=== PATIENT | female | born 1970 | race Asian ===

== ENCOUNTER 2024-02-05 16:08 | Emergency (ER) | payer OTHER ==
[2024-02-05 16:15] VITALS: BMI 26.4
[2024-02-05] MEDS ORDERED: ACETAMINOPHEN INJECTION 100 ML IVPB ONE (17:01)
[2024-02-05] MEDS ORDERED: ONDANSETRON 4 MG/2 ML VIAL ONE (17:01)
[2024-02-05] MEDS: ACETAMINOPHEN 1000 MG/100 ML BAG IVPB ONE (17:17)
[2024-02-05] MEDS: SODIUM CHLORIDE 0.9% 500 ML INFUS.BAG IV ONE ×2 (17:17→23:23)
[2024-02-05] MEDS: ONDANSETRON 4 MG/2 ML VIAL IVPUSH ONE (17:18)
[2024-02-05 17:28] LABS: PH,URINE 7.5 (5.0-8.0); URINE APPEARANCE CLEAR; URINE BILIRUBIN NEGATIVE (NEGATIVE); URINE COLOR YELLOW; URINE GLUCOSE (UA) NEGATIVE (NEGATIVE); URINE KETONE 1+ (NEGATIVE); URINE LEUK ESTERASE NEGATIVE (NEGATIVE); URINE NITRITE NEGATIVE (NEGATIVE); URINE PROTEIN NEGATIVE (NEGATIVE)
[2024-02-05 17:29] LABS: BASO % 0.3 % (0-2.0); HEMATOCRIT 37.6 % (32.4-45.2); HEMOGLOBIN 12.6 GM/dL (10.7-15.3); LYMPH % 12.9 % (8-40); MCH 26.8 pg (25.7-33.7); MCHC 33.4 g/dl (32.0-36.0); MEAN CELL VOLUME 80.3 fl (80-96); MEAN PLT VOLUME 7.5 fl (7.5-11.1); NEUT % 77.8 % (42.8-82.8); PLATELET COUNT 280 10^3/uL (134-434); RBC 4.68 M/mm3 (3.60-5.2); RDW 13.7 % (11.6-15.6)
[2024-02-05 17:44] LABS: POTASSIUM 4.1 mmol/L (3.5-5.1)
[2024-02-05 17:46] LABS: ALBUMIN 3.7 g/dl (3.4-5.0); BLOOD UREA NITROGEN 4.9 mg/dL (7-18); CALCIUM 9.1 mg/dL (8.5-10.1)
[2024-02-05 17:50] LABS: CREATININE 0.8 mg/dL (0.55-1.3)
[2024-02-05 17:51] LABS: BILIRUBIN,TOTAL 1.8 mg/dL (0.2-1); TOT PROT 8.1 g/dl (6.4-8.2)
[2024-02-06 01:02] VITALS: PULSE 74; RESP 16; TEMP 98.3
[2024-02-06 04:10] VITALS: BP 116/62
== END 2024-02-06 04:11 | disposition short-term general hospital (02) ==
LOC: JER 16:08
DX: R10.30 Lower abdominal pain, unspecified (principal); N28.1 Cyst of kidney, acquired; R11.0 Nausea; R51.9 Headache, unspecified; R63.0 Anorexia; R68.83 Chills (without fever)
CPT/HCPCS: 36415; 74177-TC; 76830-TC; 80053; 81003; 83605; 85025; 87086; 99285-25; J0131; Q9967